=== PATIENT | male | born 2000 | race Caucasian/White ===

== ENCOUNTER 2021-05-13 11:09 | Emergency (ER) | payer OTHER, MEDICAID, SELFPAY ==
[2021-05-13 11:50] VITALS: BP 100/50; PULSE 60; RESP 18; TEMP 36.7; O2SAT 98; BMI 45.7
--- NOTE | 2021-05-13 11:58 | ED.SKABFB ---
HPI - Skin/Abscess/Foreign Bdy General Chief complaint: Skin/Abscess/Foreign Body Stated complaint: FINGER LACERATION WORK RELATED Time Seen by Provider: 05/13/21 11:49 Source: patient Mode of arrival: ambulatory Limitations: no limitations History of Present Illness HPI narrative: 20 y/o male presenting for evaluation left index finger laceration sustained 1 week ago while at work. He went to [facility] at the time and had 3 sutures placed. Wound has been healing appropritely without bleeding or signs of infection. He presents today for evaluation of suture removal. MD complaint: laceration Onset (ago): week(s) (1) Tetanus up to date: yes Location: L hand Severity: mild Severity scale (1-10): 4 Pain Consistency: now resolved Relieving factors: none Exacerbating factors: none Context: none Associated symptoms: denies other symptoms Treatments prior to arrival: none Review of Systems Review of Systems: Constitutional: No Fever, No Chills Gastrointestinal: No Nausea, No Vomiting Musculoskeletal: No joint pain, No Myalgias Skin: + Skin Lesions, No rash Neuro: No Weakness, No Numbness Heme/Lymph: No Bruising PMFSH Social History Social History Advance Directives: No Advance Directives Information Provided: Yes Physical Exam Vital Signs: Vital Signs: Last Vital Signs Temp 98.0 F 05/13/21 11:50 Pulse 60 05/13/21 11:50 Resp 18 05/13/21 11:50 BP 100/50 L 05/13/21 11:50 Pulse Ox 98 05/13/21 11:50 Body Mass Index 45.7 Appearance: Alert. Oriented X3. No acute distress. HEENT: normal inspection CVS: Normal heart rate and rhythm. Pulses normal. Respiratory: No respiratory distress. Skin: Skin warm and dry. Normal skin color. Normal skin turgor. No rashes. Extremities: left hand with normal inspection, palmar aspect of the left index finger with [address] on a simple linear laceration below the PIP, normal ROM, NV intact distally. Neuro: Oriented X 3. No motor deficit. No sensory deficit. Course Course Course Narrative: 20 y/o male presenting for suture removal which were placed 1 week ago. wound healed appropriately. 3 sutures removed and local wound care applied. stable for d/c home. Discharge Plan Discharge Clinical Impression: Laceration of finger of left hand Qualifiers: Encounter type: initial encounter Finger: index finger Damage to nail status: without damage Foreign body presence: without foreign body Qualified Code(s): S61.211A - Laceration without foreign body of left index finger without damage to nail, initial encounter Patient Disposition: Home, Self-Care Instructions: Stitches Removal (ED) Additional Instructions: Your wound healed nicely. You may wash with soap and water. Recommend triple antibiotic ointment to help with healing and scarring. Keep covered with a band aid while at work. If you develop new or worsening symptoms call 911 or come back to the ER for further evaluation. Stand Alone Forms: Work/School Release
== END 2021-05-13 12:17 | disposition home or self-care (01) ==
PROVIDERS: Emergency Provider Emergency Medicine
DX: S61.211A Laceration without foreign body of left index finger without damage to nail, initial encounter (principal); M79.642 Pain in left hand; W45.8XXA Other foreign body or object entering through skin, initial encounter; Y93.9 Activity, unspecified; Y92.9 Unspecified place or not applicable; Y99.0 Civilian activity done for income or pay
CPT/HCPCS: 99283

== ENCOUNTER 2024-10-01 06:09 | Emergency (ER) | payer OTHER, SELFPAY ==
--- NOTE | ~2024-10-01 | US_ITS ---
EXAMINATION: US ABDOMEN LIMITED CLINICAL INFORMATION: Right upper quadrant/epigastric pain, nausea and vomiting. COMPARISON: None available. TECHNIQUE: Real-time imaging of the right upper quadrant abdominal viscera. FINDINGS: PANCREAS: The pancreas is completely obscured by gas. LIVER: The liver is normal in size. The liver contour is normal. Parenchymal echogenicity is increased . No focal hepatic lesion. There is no intrahepatic biliary duct dilatation seen. GALLBLADDER: The gallbladder is physiologically distended without evidence of stones, sludge, polyps, wall thickening or pericholecystic fluid. There is no tenderness in right upper quadrant by ultrasound probe. Patient does have pain in the epigastric region COMMON BILE DUCT: Normal in caliber measuring 0.5 cm in diameter. RIGHT KIDNEY: No hydronephrosis. No renal calculi or focal parenchymal lesions. The kidney measures 9.5 cm in maximum dimension. FREE FLUID: None. US/US abdomen limited IMPRESSION: Mildly increased liver echogenicity but no focal lesion seen. Gallbladder, CBD, right kidney is unremarkable. Electronically signed by: Axel Cardenas MD 10/01/2024 12:15 PM EST
--- NOTE | ~2024-10-01 | XR_ITS ---
EXAMINATION: XR CHEST CLINICAL INFORMATION: sob COMPARISON: None available. TECHNIQUE: 2 views of the chest were obtained. FINDINGS: Poor inspiration. Prominence of the interstitial markings in the perihilar regions and peripherally. No pleural effusion. No pneumothorax. Cardiomediastinal silhouette size is normal. Osseous structures are intact. Patient's large body habitus. XR/XR chest 2V IMPRESSION: Concerning acute small airway inflammatory versus infectious process. Electronically signed by: Luke Frazier MD 10/01/2024 10:14 AM MIKIE NEGRO
[2024-10-01 06:13] VITALS: BP 157/80; PULSE 61; RESP 17; TEMP 36.6; O2SAT 100; BMI 39.1
[2024-10-01 06:28] LABS: MANUAL DIFF FLAG NO
[2024-10-01 06:32] LABS: Basophils Percent Auto 0.8 % (0-2); Eosinophils Absolute Auto 0.2 X10*3/uL (0.0-0.4); Eosinophils Percent Auto 3.6 % (0-4); Hemoglobin 14.9 g/dl (14.0-18.0); Imm Gran Abs Auto 0.05 X10*3/uL (0.00-0.03); Imm Gran Pct Auto 1.1 % (0.0-0.4); Lymphocytes Absolute Auto 1.5 X10*3/uL (1.2-4.9); Lymphocytes Percent Auto 30.9 % (20-40); Mean Corpuscular HGB Conc 34.7 g/dl (31.0-36.0); Mean Corpuscular Hemoglobin 27.6 pg (27.0-33.0); Mean Corpuscular Volume 79.6 fL (80.0-98.0); Mean Platelet Volume 9.3 fL (9.4-12.4); Monocytes Absolute Auto 0.8 X10*3/uL (0.1-1.2); Monocytes Percent Auto 16.1 % (2-11); Neutrophils Absolute Auto 2.2 x10*3/uL (2.0-8.3); Neutrophils Percent Auto 47.5 % (45-73); Platelet Count 249 X10*3/uL (160-400); Red Cell Distribution Width 13.2 % (11.0-16.0); White Blood Count 4.7 X10*3/uL (4.8-10.8)
[2024-10-01 06:49] LABS: Albumin Level 4.8 g/dL (3.5-5.0); Alkaline Phosphatase 50 U/L (39-117); Anion Gap 11 (12-20); Aspartate Amino Transferase 27 U/L (5-37); Bilirubin Direct 0.1 mg/dL (0.0-0.5); Bilirubin Total 0.4 mg/dL (0.0-1.0); Blood Urea Nitrogen 14 mg/dL (9-16); Calcium 9.8 mg/dL (8.4-10.2); Carbon Dioxide 26 mmol/L (22-29); Chloride 107 mmol/L (96-108); Creatinine Clr Calc Pharmacy 159.4; Estimated Glomerular Filt Rate > 60; Glucose Random 91 mg/dL (60-115); Lipase 43 U/L (8-78); Potassium 4.2 mmol/L (3.3-5.1); Sodium 140 mmol/L (135-145); Total Protein 8.6 g/dL (6.5-8.0)
[2024-10-01 07:02] LABS: Alanine Aminotransferase 32 U/L (0-40)
--- NOTE | 2024-10-01 10:01 | ED_ITS ---
HPI - Abdominal Pain General Chief Complaint: Abdominal Pain Stated Complaint: abd pain Time Seen by Provider: 10/01/24 09:39 Source: patient, RN notes reviewed and old records reviewed Mode of arrival: ambulatory History of Present Illness ED Provider: Jannet Delaney PA-C HPI narrative: 24-year-old male with no significant past medical history presents to the ED c/o epigastric abdominal pain, nausea, nonbloody vomiting & diarrhea, and SOB x2 days, also reports nonproductive cough x2 months. Denies chest pain, recent travel, dysuria/hematuria +sick contact. Related Data Previous Rx's ?Medication ?Instructions ?Recorded aluminum-mag hydroxide-simethicone 5 ml PO 5XD PRN dyspepsia #30 mL 10/01/24 200 mg-200 mg-20 mg/5 mL oral susp (Maalox Advanced) benzonatate 100 mg capsule 100 mg PO TID PRN cough #14 caps 10/01/24 famotidine 20 mg tablet (Pepcid) 20 mg PO DAILY #14 tabs 10/01/24 prednisone 20 mg tablet 40 mg (2 x 20 mg) PO DAILY 5 days 10/01/24 #10 tabs Allergies Allergy/AdvReac Type Severity Reaction Status Date / Time No Known Allergies Allergy Verified 10/01/24 06:14 Review of Systems Review of Systems Yes all other systems are reviewed and are negative Constitutional: Reports as per HPI [facility] Past Medical History Attestation statement: The following information was validated with the patient. Source: old records reviewed Physical Exam ED Vital Signs: Vital Signs - 24 hr 10/01/24 06:13 10/01/24 13:14 Temperature 97.9 F 97.9 F Pulse Rate 61 61 Respiratory Rate 17 17 Blood Pressure 157/80 H 157/80 H Pulse Oximetry 100 100 Oxygen Delivery Method Room Air Room Air BMI result Body Mass Index 39.1 Const General: cooperative, healthy appearing and no acute distress Orientation/consciousness: patient oriented x3 Limitations: no limitations HENMT Head: Yes normal to inspection and Yes atraumatic Ears: hearing grossly normal bilaterally General nose exam: Normal external nose present Face and sinus: Yes normal facial exam Eyes General: appearance normal, both eyes and all related structures EOM: EOMs intact bilaterally Neck Neck: Yes normal visual inspection and Yes no meningeal signs Resp Effort & Inspection: normal respiratory effort and no respiratory distress Auscultation: clear to auscultation bilaterally, no crackles, no rhonchi and no wheezes Cardio Rate: regular rate Heart sounds: S1 normal heart sound present and S2 normal heart sound present GI Inspection: Yes normal to inspection Palpation (GI): Soft to palpation, Tenderness to palpation present (GI) in the epigastrum and in the RUQ; with no rebound tenderness, no guarding and not rigid General: Yes no CVA tenderness Back/Spine/Pelvis Back: no CVA tenderness Skin Rashes: no rashes Wounds: no wounds Neuro General: patient oriented x3, tone normal and no meningeal signs Cranial nerves: Yes CN's II-XII intact bilaterally Gait exam (Neuro): Normal gait present Extrem General: Yes normal to inspection Course Course Course Narrative: -1050--labs reassuring XR chest 2V IMPRESSION: Concerning acute small airway inflammatory versus infectious process. -1303--COVID/flu/RSV negative US abdomen limited IMPRESSION: Mildly increased liver echogenicity but no focal lesion seen. Gallbladder, CBD, right kidney is unremarkable. > patient is tolerating p.o. in the ED without difficulty -rapid strep negative Results discussed with patient including worrisome signs and symptoms and strict return precautions, and when to return to the emergency department. They verbalized understanding and feel safe for discharge at this time. Medical Decision Making Medical Decision Making MDM Narrative: 24-year-old male with no significant past medical history presents to the ED c/o epigastric abdominal pain, nausea, nonbloody vomiting & diarrhea, and SOB x2 days, also reports nonproductive cough x2 months. On exam vital signs stable, NAD, nontoxic appearing, lungs CTA, abdomen with epigastric/RUQ tenderness, no rebound or guarding. Concern for viral illness vs pneumonia vs bronchitis vs pancreatitis/cholecystitis/lithiasis vs gastritis. Low suspicion for acute appendicitis/diverticulitis or ACS/PE Plan: Labs, CXR, viral testing, ultrasound, GI cocktail, p.o. trial, re- evaluate Please refer to course for remaining clinical decision making, interpretation of labs/imaging results, and discussions with consultants and/or family members. Differential Diagnosis Differential Diagnoses: The differential diagnosis associated with the presentation includes As above Admission/Observation Consideration of admission/observation: Escalation of care including admission/observation considered Lab Data MDM Lab Attestation statement: I reviewed the patient's lab results. 10/01/24 06:19 10/01/24 06:19 Labs: Lab Results 10/01/24 10/01/24 Range/Units 06:19 12:16 WBC 4.7 L (4.8-10.8) X10*3/uL RBC 5.40 (4.60-5.80) X10*6/uL Hgb 14.9 (14.0-18.0) g/dl Hct 43.0 (42.0-52.0) % MCV 79.6 L (80.0-98.0) fL MCH 27.6 (27.0-33.0) pg MCHC 34.7 (31.0-36.0) g/dl RDW 13.2 (11.0-16.0) % Plt Count 249 (160-400) X10*3/uL MPV 9.3 L (9.4-12.4) fL Immature Gran % (Auto) 1.1 H (0.0-0.4) % Neut % (Auto) 47.5 (45-73) % Lymph % (Auto) 30.9 (20-40) % [place] % (Auto) 16.1 H (2-11) % Eos % (Auto) 3.6 (0-4) % Baso % (Auto) 0.8 (0-2) % Lymph # (Auto) 1.5 (1.2-4.9) X10*3/uL [place] # (Auto) 0.8 (0.1-1.2) X10*3/uL Eos # (Auto) 0.2 (0.0-0.4) X10*3/uL Baso # (Auto) 0.0 (0.0-0.2) X10*3/uL Abs Immat Gran (auto) 0.05 H (0.00-0.03) X10*3/uL Absolute Neuts (auto) 2.2 (2.0-8.3) x10*3/uL Absolute Nucleated RBC 0.000 (0.0-0.012) X10*3/uL Nucleated RBC % (auto) 0.0 (0.0-0.2) /100WBC Sodium 140 (135-145) mmol/L Potassium 4.2 (3.3-5.1) mmol/L Chloride 107 (96-108) mmol/L Carbon Dioxide 26 (22-29) mmol/L Anion Gap 11 L (12-20) BUN 14 (9-16) mg/dL Creatinine 0.79 (0.5-1.4) mg/dL Estim Creat Clear Calc 159.4 Estimated GFR > 60 Random Glucose 91 (60-115) mg/dL Calcium 9.8 (8.4-10.2) mg/dL Magnesium 2.1 (1.6-2.6) mg/dL Total Bilirubin 0.4 (0.0-1.0) mg/dL Direct Bilirubin 0.1 (0.0-0.5) mg/dL AST 27 (5-37) U/L ALT 32 (0-40) U/L Alkaline Phosphatase 50 (39-117) U/L Total Protein 8.6 H (6.5-8.0) g/dL Albumin 4.8 (3.5-5.0) g/dL Lipase 43 (8-78) U/L Influenza Type A (PCR) NEGATIVE (Negative) Influenza Type B (PCR) NEGATIVE (Negative) RSV RNA Qual (PCR) NEGATIVE (Negative) SARS-CoV-2 RNA (RT-PCR) NEGATIVE (Negative) S. pyogenes GrpA ADAM Negative (Negative) Independent Interpretation I performed an independent interpretation of an: Plain X-Ray and Ultrasound Radiology Impression Discussion of test interpretation with radiology: I have reviewed the radiologist's reading. External Record Review External record reviewed: Inpatient record, Office record, Outpatient record, Prior outpatient labs, Prior outpatient radiology, Primary care record and Outside ED record Tests considered The following testing was considered but not selected: As above Prescription Management I considered prescription management with: Pain Medication and Antibiotic Chronic Conditions Patient?s care impacted by: Other Social Determinants Patient?s care significantly limited by Social Determinants of Health including: Other Social Determinant of Health Medications Administered Discontinued Medications Generic Name Dose Route Start Last Admin Trade Name Freq PRN Reason Stop Dose Admin Al Hydroxide/Mg Hydroxide 30 ml 10/01/24 10:18 10/01/24 11:30 Magnesium Hydrox/Alum Hydrox 30 Ml Oral.Susp PO 10/01/24 10:19 30 ml ONCE ONE Administration Famotidine 20 mg 10/01/24 10:18 10/01/24 11:30 Famotidine 20 Mg Tablet PO 10/01/24 10:19 20 mg ONCE ONE Administration Ondansetron HCl 4 mg 10/01/24 10:18 10/01/24 11:30 Ondansetron Odt 4 Mg Tab.Alena REVELESU 10/01/24 10:19 4 mg ONCE ONE Administration Discharge Plan Discharge Clinical Impression: Acute viral syndrome, Epigastric abdominal pain, Bronchitis Patient Disposition: Home, Self-Care Instructions: Viral Syndrome (ED), Epigastric Pain (ED) Additional Instructions: Your x-ray shows evidence of a virus/inflammation. No pneumonia You tested negative for COVID, flu, RSV Your ultrasound shows mild increased liver echogenicity Prednisone will help with cough/bronchitis. Tessalon Perles for cough, take as needed Pepcid and Maalox will help with acid reduction Please have close follow up with her doctor If symptoms persist or worsen or your unable to eat or drink return to the ED Prescriptions: New benzonatate 100 mg capsule 100 mg PO TID PRN (Reason: cough) Qty: 14 0RF famotidine [Pepcid] 20 mg tablet 20 mg PO DAILY Qty: 14 0RF alum-mag hydroxide-simeth [Maalox Advanced] 200-200-20 mg/5 mL suspension 5 ml PO 5XD PRN (Reason: dyspepsia) Qty: 30 0RF Rx Instructions: administer between meals and at bedtime prednisone 20 mg tablet 40 mg PO DAILY 5 Days Qty: 10 0RF Referrals: Physician,None [Primary Care Provider] - 5 days Interventions: ED Discharge Assessment Last Done: 10/01/24 13:14 Discharge Date/Time: 10/01/24 13:15 Print Language: Turkish
[2024-10-01 10:34] LABS: Magnesium 2.1 mg/dL (1.6-2.6)
[2024-10-01] MEDS: Famotidine 20 MG TABLET PO (11:30)
[2024-10-01] MEDS: Ondansetron ODT 4 MG TAB.RAPDIS TRANSLINGU (11:30)
[2024-10-01] MEDS: Magnesium Hydrox/Alum Hydrox 30 ML ORAL.SUSP PO (11:30)
[2024-10-01 13:01] LABS: Influenza A PCR NEGATIVE (Negative); Influenza B PCR NEGATIVE (Negative); Resp Syncy Virus RNA Qual PCR NEGATIVE (Negative); SARS COV2 PCR INHOUSE NEGATIVE (Negative)
[2024-10-01 13:14] VITALS: BP 157/80; PULSE 61; RESP 17; TEMP 36.6; O2SAT 100
[2024-10-01 13:24] LABS: IDNOW Serial# 58CA691E; Strep A Nucleic Acid Negative (Negative)
== END 2024-10-01 13:15 | disposition home or self-care (01) ==
PROVIDERS: Physician Assistant; Emergency Provider Emergency Medicine
DX: B34.9 Viral infection, unspecified (principal); J40 Bronchitis, not specified as acute or chronic; R10.811 Right upper quadrant abdominal tenderness; R10.13 Epigastric pain; R11.2 Nausea with vomiting, unspecified; R06.02 Shortness of breath; R05.9 Cough, unspecified; Z03.818 Encounter for observation for suspected exposure to other biological agents ruled out
CPT/HCPCS: 0241U; 36415; 71046; 76705; 80048; 80076; 83690; 83735; 85025; 87651; 99282; 99284

== ENCOUNTER → 2024-10-01 09:57 | Outpatient (BNV) | payer OTHER, SELFPAY | PROVIDERS: Emergency Provider Emergency Medicine; Visit Provider Radiology Diagnostic Radiology | DX: R10.11 Right upper quadrant pain (principal); R06.02 Shortness of breath | CPT/HCPCS: 71046; 76705 ==

== ENCOUNTER 2025-01-07 06:17 | Emergency (ER) | payer OTHER, SELFPAY ==
--- NOTE | ~2025-01-07 | XR_ITS ---
EXAMINATION: XR WRIST, RIGHT CLINICAL INFORMATION: fall, pain COMPARISON: None available. TECHNIQUE: PA, lateral, and oblique views of the right wrist. FINDINGS: The carpal bones are intact with normal alignment. Distal radius and ulna are intact. Acute comminuted cortical disruption at the base of the fifth metacarpal likely extending into the carpometacarpal joint. Soft tissue contusion ulnar aspect of the right hand. No metallic or radiopaque foreign body. No subcutaneous emphysema. XR/XR wrist RT min 3V IMPRESSION: Acute comminuted likely intra-articular fracture, base fifth metacarpal. Electronically signed by: Luke Frazier MD 01/07/2025 07:47 AM EDT
--- NOTE | ~2025-01-07 | XR_ITS ---
EXAMINATION: XR HAND, RIGHT CLINICAL INFORMATION: fall, pain COMPARISON: None available. TECHNIQUE: PA, lateral, and oblique views of the right hand. FINDINGS: Comminuted cortical disruption at the base of the fifth metacarpal and likely extending to the carpometacarpal joint. The metacarpals from the first of the fourth are intact. The phalanges are intact with normal alignment. No metallic or radiopaque foreign body. No subcutaneous emphysema. Distal radius and ulna are intact. XR/XR hand RT min 3V IMPRESSION: Acute comminuted likely intra-articular fracture, base of fifth metacarpal. Electronically signed by: Luke Frazier MD 01/07/2025 07:46 AM EDT
[2025-01-07 06:19] VITALS: BP 116/89; PULSE 62; RESP 16; TEMP 36.1; O2SAT 100; BMI 40.4
--- NOTE | 2025-01-07 07:27 | PC.NURSE ---
patient a&ox3, vss, pt stating he has 5/10 hand pain at rest, 10/10 pain with movement, did not take any otc medications for pain at home, + csm/pulses, awaiting radiology
--- NOTE | 2025-01-07 08:04 | ED_ITS ---
HPI - General Adult General Chief complaint: Extremity Problem Stated complaint: Fall, hand inj Time Seen by Provider: 01/07/25 08:02 Source: patient Mode of arrival: ambulatory Limitations: no limitations History of Present Illness ED Provider: Shruthi Marvin PA-C HPI narrative: Patient is a 24 year old assigned male at with no reported medical history presenting to the emergency department today with right hand pain along the side of the 5th finger. Patient states that at 0430 this morning he fell and caught himself on his closed fist and has pain of the right hand ever since. Patient denies any head strike, loss of consciousness, dizziness, lightheadedness, abdominal pain, nausea, vomiting, fever, chills, blurry vision, double vision, loss of vision, chest pain, difficulty breathing, shortness of breath, back pain, night sweats, pain with urination, increased urinary frequency, increased urinary urgency, blood in his urine or stool, syncope or a near syncopal episode, bowel incontinence, bladder incontinence, or any other complaints at this time. Onset (ago): hour(s) Location: right and upper extremity Relieving factors: immobilization Exacerbating factors: movement Associated symptoms: denies other symptoms Treatments prior to arrival: none Related Data Previous Rx's ?Medication ?Instructions ?Recorded aluminum-mag hydroxide-simethicone 5 ml PO 5XD PRN dyspepsia #30 mL 10/01/24 200 mg-200 mg-20 mg/5 mL oral susp (Maalox Advanced) benzonatate 100 mg capsule 100 mg PO TID PRN cough #14 caps 10/01/24 famotidine 20 mg tablet (Pepcid) 20 mg PO DAILY #14 tabs 10/01/24 prednisone 20 mg tablet 40 mg (2 x 20 mg) PO DAILY 5 days 10/01/24 #10 tabs Allergies Allergy/AdvReac Type Severity Reaction Status Date / Time No Known Allergies Allergy Verified 01/07/25 06:20 Review of Systems Constitutional: Constitutional: Reports no additional constitutional complaints, Denies chills, Denies fever(s) and Denies night sweats Eyes: Eyes: Reports no additional eye complaints, Denies blurry vision, Denies change in vision, Denies diplopia, Denies eye discharge, Denies loss of vision and Denies eye pain ENT: Denies dizziness Cardiovascular: Cardiovascular: Reports no additional cardiovascular complaints, Denies chest pain, Denies lightheadedness, Denies Loss of Consciou sness and Denies dyspnea Respiratory: Respiratory: Reports no additional respiratory complaints and Denies dyspnea Gastrointestinal: Gastrointestinal: Reports no additional gastrointestinal complaints, Denies abdominal pain, Denies melena, Denies hematochezia, Denies change in bowel habits and Denies change in stool character Genitourinary: Genitourinary: Reports no additional male genitourinary complaints, Denies hematuria, Denies oliguria, Denies difficulty urinating, Denies dysuria, Denies urinary frequency, Denies urinary hesitancy, Denies urinary incontinence and Denies urinary urgency Musculoskeletal: Musculoskeletal: Reports no additional musculoskeletal complaints, Denies numbness and Denies tingling Comments: right hand pain Neurologic: Denies dizziness, Denies loss of vision, Denies numbness and Denies tingling Psychiatric: Psychiatric: Reports no additional psychiatric complaints Endocrine: Endocrine: Reports no additional endocrine complaints Hematologic/Lymphatic: Hematologic/Lymphatic: Reports no additional hematologic/lymphatic complaints Allergic/Immunologic: Allergic/Immunologic: Reports no additional allergic/immunologic complaints PMFSH Past Medical History Attestation statement: The following information was validated with the patient. Source: old records reviewed and nursing notes reviewed Physical Exam ED Vital Signs: Vital Signs - 24 hr 01/07/25 06:19 01/07/25 09:16 Temperature 97 F 97.3 F Pulse Rate 62 68 Respiratory Rate 16 16 Blood Pressure 116/89 118/78 Pulse Oximetry 100 99 Oxygen Delivery Method Room Air Room Air BMI result Body Mass Index 40.4 Const General: cooperative, no acute distress, alert and awake Nutritional Appearance: well nourished Orientation/consciousness: patient oriented x3 HENMT Head: Yes normal to inspection and Yes atraumatic Ears: hearing grossly normal bilaterally and external ears normal General nose exam: Normal external nose present, no nasal discharge noted and no epistaxis Face and sinus: Yes normal facial exam, No abrasion and No laceration Mouth: Normal oral and palatal mucosa present, no drooling and no muffled voice Eyes General: appearance normal, both eyes and all related structures Periorbital: periorbital findings normal Eyelids: Yes eyelids normal Conjunctivae: conjunctivae normal Pupils: Equal, round and reactive pupils present EOM: EOMs intact bilaterally Neck Neck: Yes normal visual inspection, Yes full ROM and Yes no lymphadenopathy Resp Effort & Inspection: normal respiratory effort and able to speak in complete sentences Neuro General: patient oriented x3, moves all extremities and CN's II-XI intact bilaterally Cranial nerves: Yes Equal, round and reactive pupils present Cognition (Neuro): normal cognition Extrem Other: limited ROM of the right 5th finger secondary to pain minimal swelling present to the dorsal aspect of the right 5th metacarpal General: Yes capillary refill normal Psych Appearance: grossly normal Mental Status: mental status grossly normal Affect: normal affect Attitude: cooperative Thought process: Normal thought process present Thought content: Normal thought content present Insight: Good insight present (Psych) Procedures Orthopedic Splinting/Casting Injury #1: Side: right Upper Extremity Injury Location: hand Upper Extremity Immobilizer: sling/shoulder immobilizer and ulnar gutter Medical Decision Making Medical Decision Making MDM Narrative: Patient is a 24 year old assigned male at with no reported medical history presenting to the emergency department today with right hand pain along the side of the 5th finger. Patient's physical exam was as noted in the physical exam portion of this note. Patient's right hand and wrist x-rays showed an acute comminuted likely intra-articular fracture of the base of the 5th right metacarpal. I explained my physical exam findings as well as all test results to the patient. I answered all questions asked by the patient. Right's right hand / wrist was placed in an ulnar gutter splint, without incident. Patient's PMS of the RUE was intact prior to and after splint placement. Patient was placed in a sling to make ambulating more comfortable given the weight of the splint. Patient's PMS was intact prior to and after sling placement. I stressed the importance of the patient taking his medication as directed (either prescribed or as the over the counter packaging recommends). I stressed the importance of the patient following up with his primary care provider and the orthopedic team. I stressed the importance of the patient returning to the emergency department immediately if his symptoms were to worsen or if he were to develop any dizziness, shortness of breath, difficulty breathing, chest pain, blurry vision, loss of vision, nausea, vomiting, abdominal pain, fever, chills, back pain, or any other complaints. Patient verbalized agreement and understanding with this treatment plan and discharge. Differential Diagnosis Differential Diagnoses: The differential diagnosis associated with the presentation includes R 5th metacarpal fracture R hand fracture Admission/Observation Consideration of admission/observation: Escalation of care including admission/observation considered Patient would have been admitted to the hospital had his work up had any findings where hospital admission was appropriate and his clinical presentation warranted hospital admission. Independent Interpretation I performed an independent interpretation of an: Plain X-Ray Interpretation: My interpretation is in agreement with the radiologist's impression of these imaging studies. EXAMINATION: XR WRIST, RIGHT CLINICAL INFORMATION: fall, pain COMPARISON: None available. TECHNIQUE: PA, lateral, and oblique views of the right wrist. FINDINGS: The carpal bones are intact with normal alignment. Distal radius and ulna are intact. Acute comminuted cortical disruption at the base of the fifth metacarpal likely extending into the carpometacarpal joint. Soft tissue contusion ulnar aspect of the right hand. No metallic or radiopaque foreign body. No subcutaneous emphysema. XR/XR wrist RT min 3V IMPRESSION: Acute comminuted likely intra-articular fracture, base fifth metacarpal. Electronically signed by: Luke Frazier MD 01/07/2025 07:47 AM EDT Dictated By: Luke Wright MD Signed By: Electronically signed by Luke Iqbal MD 01/07/25 0747 EXAMINATION: XR HAND, RIGHT CLINICAL INFORMATION: fall, pain COMPARISON: None available. TECHNIQUE: PA, lateral, and oblique views of the right hand. FINDINGS: Comminuted cortical disruption at the base of the fifth metacarpal and likely extending to the carpometacarpal joint. The metacarpals from the first of the fourth are intact. The phalanges are intact with normal alignment. No metallic or radiopaque foreign body. No subcutaneous emphysema. Distal radius and ulna are intact. XR/XR hand RT min 3V IMPRESSION: Acute comminuted likely intra-articular fracture, base of fifth metacarpal. Electronically signed by: Luke Frazier MD 01/07/2025 07:46 AM EDT RP Dictated By: Luke Wright MD Signed By: Electronically signed by Luke Iqbal MD 01/07/25 8037 Radiology Impression Discussion of test interpretation with radiology: I have reviewed the radiologist's reading. Discharge Plan Discharge Clinical Impression: Fracture, metacarpal, Fracture of hand Patient Disposition: Home, Self-Care Instructions: Hand Fracture (DC) Additional Instructions: Only use your sling when ambulating if the weight of the splint is too much to comfortably carry. Every 1 hour for 10 minutes while wearing the sling, remove it and move your right elbow and shoulder joints. Do NOT get your splint wet. Do NOT remove your splint. If you have any change in sensation, movement, or color of your right fingers - you may loosen the outer JOE wraps. If you find yourself loosening the JOE wraps to the point of seeing the white splint material underneath - STOP and proceed to your closest Emergency Department, immediately. Follow up with your primary care provider and the orthopedic team. Return to the emergency department immediately if your symptoms worsen or if you develop any numbness, tingling, dizziness, shortness of breath, difficulty breathing, chest pain, blurry vision, loss of vision, nausea, vomiting, abdominal pain, fever, chills, back pain, or any other complaints. Utilice el cabestrillo s?lo cuando deambule si el peso de la f?patricia es demasiado para llevarlo c?modamente. Cada 1 hora linden 10 minutos mientras lleve el cabestrillo, qu?teselo y mueva las articulaciones del codo y hombro derechos. NO moje la f?patricia. NO se quite la f?patricia. Si tiene alg?n cambio en la sensibilidad, el movimiento o el color de los dedos derechos, puede aflojar las envolturas externas de la f?patricia JOE. Si se encuentra aflojando las vendas JOE hasta el punto de tory el material pace de la f?patricia por debajo, DET?NGASE y dir?claudia inmediatamente al servicio de urgencias m?s cercano. Dwait un seguimiento con vincent m?dico de cabecera y el equipo ortop?dico. Vuelva al servicio de urgencias inmediatamente si lucero s?ntomas empeoran o si presenta entumecimiento, hormigueo, mareos, falta de aliento, dificultad para respirar, dolor tor?cico, visi?n borrosa, p?rdida de visi?n, n?useas, v?mitos, dolor abdominal, fiebre, escalofr?os, dolor de espalda o cualquier otra molestia. Please see the information below about our Patient Portal. If you are not yet enrolled in the [facility] Patient Portal, you will receive an enrollment email invitation following your visit to any [facility] [place] [place] [place] care setting. You may also self-enroll in the Patient Portal by visiting our website: [email or web address] The following information is required to access the Patient Portal: - Your [facility] [place] [place] - Your personal home email address (must match what is in your electronic medical record, Registration staff can assist with this) - Name - Date of Capabilities of the Patient Portal: - Message some providers - View upcoming appointments - Access your health summary, medical history, and visit history - View current conditions and allergies - View procedure and lab results - View your medications, including guidelines, side effects, and precautions - Complete pre-appointment questionnaires requested by your provider - Ready summary reports of your office visits and procedures To access the Patient Portal Mobile Bhumika, follow these directions: - Search [employer] in the Bhumika Store or [employer] - Download the Bhumika - Search for [facility] - Enter your login/password Portal del paciente Si usted no esta inscrito en el portal de pacientes de [facility], recibira sami invitacion de inscripcion despues de vincent visita al [facility] o al [facility] [place] [place] via correo electronico. Tambien puede inscribirse voluntariamente en el portal de pacientes visitando nuestra pagina web: [email or web address] La siguiente informacion sera requerida para acceder al portal: - Vincent tarik de historia medica de [facility] [place] - Vincent direccion de correo electronico personal - Nombre - Fecha de nacimiento Capacidades: Las siguientes capacidades estan disponibles en el portal de pacientes: - Enviar mensajes a algunos doctores - Verificar proximas citas - Acceso a vincent historial de brittany, registro medico e historial de visitas - Tory las condiciones actuales y alergias tory procedimientos y resultados del laboratorio - Tory lucero medicamentos, incluyendo las pautas - Efectos secundarios y precauciones - Completar o llenar formularios / cuestionarios de - Citas solicitadas por vincent doctor - Leer los resumenes de reportes medicos de lucero visitas y procedimientos Arabella acceder a la aplicacion movil: - Busque [employer] en la Bhumika Store o [employer] - Descargue la aplicacion - Busque [facility] - Ingrese vincent nombre de usuario / Contrasena Prescriptions: No Action benzonatate 100 mg capsule 100 mg PO TID PRN (Reason: cough) Qty: 14 0RF famotidine [Pepcid] 20 mg tablet 20 mg PO DAILY Qty: 14 0RF alum-mag hydroxide-simeth [Maalox Advanced] 200-200-20 mg/5 mL suspension 5 ml PO 5XD PRN (Reason: dyspepsia) Qty: 30 0RF Rx Instructions: administer between meals and at bedtime prednisone 20 mg tablet 40 mg PO DAILY 5 Days Qty: 10 0RF Referrals: [facility] [place] [place] [Provider Group] (Call to establish and follow up with a primary care provider. If you already have a primary care provider, please follow up with them.) [facility] [place] [facility], Jorge [Provider Group] (Call to establish and follow up with a primary care provider. If you already have a primary care provider, please follow up with them.) [facility] [place] [facility], Luh [Provider Group] (Call to establish and follow up with a primary care provider. If you already have a primary care provider, please follow up with them.) [facility] [place] [facility], Raven [Provider Group] (Call to establish and follow up with a primary care provider. If you already have a primary care provider, please follow up with them.) [facility] [place] [facility], Austin Hernandez [Provider Group] (Call to establish and follow up with a primary care provider. If you already have a primary care provider, please follow up with them.) [facility] [place] [Provider Group] (Call to establish and follow up with the orthopedic office. ) Stand Alone Forms: Work/School Release Interventions: ED Discharge Assessment Last Done: 01/07/25 09:16 Discharge Date/Time: 01/07/25 09:18 Print Language: Yi
--- NOTE | 2025-01-07 09:10 | PC.NURSE ---
splint and sling applied, pt tolerated well
[2025-01-07 09:16] VITALS: BP 118/78; PULSE 68; RESP 16; TEMP 36.3; O2SAT 99
== END 2025-01-07 09:18 | disposition home or self-care (01) ==
PROVIDERS: Emergency Provider Emergency Medicine
DX: S62.316A Displaced fracture of base of fifth metacarpal bone, right hand, initial encounter for closed fracture (principal); M79.641 Pain in right hand; X58.XXXA Exposure to other specified factors, initial encounter; Y93.9 Activity, unspecified; Y92.9 Unspecified place or not applicable; Y99.8 Other external cause status
CPT/HCPCS: 29125; 73110; 73130; 99283

== ENCOUNTER → 2025-01-07 07:30 | Outpatient (BNV) | payer OTHER, SELFPAY | PROVIDERS: Visit Provider Radiology Diagnostic Radiology | DX: M25.531 Pain in right wrist (principal); M79.641 Pain in right hand; W19.XXXA Unspecified fall, initial encounter | CPT/HCPCS: 73110; 73130 ==

== ENCOUNTER 2025-01-07 11:12 | Outpatient (AMB) | payer OTHER, SELFPAY ==
--- NOTE | 2025-01-07 11:24 | MHC.OFFVIS ---
Vital Signs 01/07/25 11:25 Height 5 ft 5 in Weight 243 lb BMI 40.4 Intake Visit Reasons: FC intra-articular fx, base of 5th metacarpal Intake Note: Rosas 24 yr old right hand dominant male presents today for a fracture care visit s/p ED visit 01/07/25. Patient states that at 0430 this morning he fell and caught himself on his closed fist and has pain of the right hand ever since. Xray taken in ED where a fracture was confirmed, patient was splinted and referred to orthopedics. Currently states his pain is a 5/10 and worsen with he moves his arm/hand. Denies numbness or tingling in fingers. Allergies No Known Allergies Allergy (Verified 01/07/25 11:31) HPI HPI FC intra-articular fx, base of 5th metacarpal: Details: Rosas is a 24 year old right hand dominant man who presents for a right 5th metacarpal base fx, from a fall, DOI: 01/07/25. He was seen in the ED and placed in an ulnar gutter splint. He complains of pain in his hand, worse with any movement. He denies any numbness or tingling. He says he has asthma & a dry cough for the last 2 years. He is in the process of finding a new PCP. He works in shipping, primarily loading/unloading packages. [facility] Social History (Updated 01/07/25 @ 11:32 by EMILIO Lao) Current occupational status: employed Current occupation: shipping airplanes parts/ rt hand Review of Systems Const All systems reviewed & are unremarkable except as noted in HPI and below Physical Exam Vital Signs: BMI result Body Mass Index 40.4 Const General: cooperative, healthy appearing and no acute distress Orientation/consciousness: patient oriented x3 HEENT Head: Yes normocephalic and Yes atraumatic Eyes EOM: EOMs intact bilaterally Resp Effort & Inspection: normal respiratory effort and able to speak in complete sentences Cardio Jugular venous distension: no JVD Skin General skin exam: turgor normal Rashes: no rashes Neuro General: patient oriented x3 Extrem Other: Evaluation of Right Upper Extremity: The patient is alert, oriented, and in no acute distress Neuro: Sensation intact to the tips of all digits Vascular: Cap refill brisk ROM: He can bring his fingers closed to a weak fist Painless wrist ROM Skin: No lacerations or abrasions or evidence of open fracture General: No Erythema or evidence of infection. Mild swelling & ecchymosis developing Most tender over the 5th metacarpal base No tenderness along the length of the small finger No tenderness at the 5th MCP joint Radiographs: 3 views of the right hand were taken and viewed by me today in clinic. They show a 5th metacarpal base fracture, intra-articular, with ulnar translation of the joint on the PA view Psych Appearance: grossly normal Affect: normal affect Attitude: cooperative Assessment & Plan Assessment & Plan (1) Fracture of fifth metacarpal bone of right hand: Code(s): S62.306A - Unspecified fracture of fifth metacarpal bone, right hand, initial encounter for closed fracture Category: Medical (2) Closed dislocation of fifth carpometacarpal joint of right hand: Code(s): S63.054A - Dislocation of other carpometacarpal joint of right hand, initial encounter Category: Medical Plan Assessment & Plan: 1. Right 5th CMC joint fracture dislocation, intra-articular With ulnar displacement of the joint From a fall, DOI: 01/07/25 I educated him about this condition I discussed operative and non-operative treatment options The patient would like to proceed with surgery He was fitted for a new splint, to be worn until his DOS. He works in a warehouse loading/unloading packages. He was given a note to remain out of work for the next 2 weeks, effective 01/07/25. The risks and benefits of operative treatment were discussed with the patient and the patient wishes to proceed with surgery. These risks include, but are not limited to risk of damage to blood vessels, nerves, tendons, infection, recurrence, incomplete relief of preoperative symptoms, persistent pain, possible need for further surgery and the risks associated with regional blocks and anesthesia. The plan is to take the patient to the operating room sometime on 01/09/25 for the following procedures: 1. Right 5th metacarpal CRPP vs ORIF, under general All of the preoperative paperwork including the consent was reviewed today. All the patient's questions were answered. The patient understands that they will be contacted by our crusher machine operator soon to schedule this procedure He denies Diabetes, blood thinners, asthma, heart, lung, kidney issues Scribed for Rachel Payton MD by Zeke Wolf, medical office assistant, on 01/07/25 at 11:35 AM, EST. Coding Level of Care Code New Pt Level 4 (38115) Diagnoses Fracture of fifth metacarpal bone of right hand S62.306A Closed dislocation of fifth carpometacarpal joint of right hand S63.054A
[2025-01-07 11:25] VITALS: BMI 40.4
== END 2025-01-07 12:17 | disposition home or self-care (01) ==
LOC: HO.HOS 11:12
PROVIDERS: Visit Provider Orthopaedic Surgery
DX: S62.306A Unspecified fracture of fifth metacarpal bone, right hand, initial encounter for closed fracture (principal); S63.054A Dislocation of other carpometacarpal joint of right hand, initial encounter
CPT/HCPCS: 99204

== ENCOUNTER 2025-01-09 11:02 | Day surgery (SDC) | payer OTHER, SELFPAY ==
--- NOTE | 2025-01-08 10:20 | HO.ANESPROP2 ---
Documented by User: Milvia Bowser NP 01/08/25 10:21 HPI - Anesthesia Eval Consult details Narrative: 24yo M for 5th CRPP vs ORIF Metacarpal PMFSH Active Problems Active Problems: All Active Problems Closed dislocation of fifth carpometacarpal joint of right hand (Acute) Fracture of fifth metacarpal bone of right hand (Acute) Past Medical History Medical History Asthma Surgical History Surgical History Hx of tonsillectomy Social History Social History Are you a primary director of patient care to a significant other at home: No Do you presently have visiting nurse or other home services: No Patient Tobacco Use Status: Never used Tobacco Use of substances other than those prescribed or required for medical reasons: No Have you been hit, kicked, punched, or otherwise hurt by someone within the past year? If so, by whom?: No Are you DNR?: No Advance Directives: No Advance Directives Information Provided: Yes Poor oral hygiene: No Current occupational status: employed Current occupation: shipping airplanes parts/ rt hand Meds Allergies Allergy/AdvReac Type Severity Reaction Status Date / Time No Known Allergies Allergy Verified 01/09/25 11:14 Home Medications ?Medication ?Instructions ?Recorded ?Confirmed ?Last Taken ?Type No Known Home Meds 01/09/25 01/09/25 Unknown History Exam Pertinent Lab Results Pertinent Lab Results: Laboratory Tests 10/01/24 06:19 WBC 4.7 L Hgb 14.9 Hct 43.0 Plt Count 249 Sodium 140 Potassium 4.2 Chloride 107 Carbon Dioxide 26 BUN 14 Creatinine 0.79 Assessment and Plan Assessment Anesthesia Assessment: Chart Reviewed Documented by User: Caridad Levi MD 01/09/25 12:02 PMFSH Past Medical History Medical History Asthma Family History Family history of problems with anesthesia: No Surgical History Surgical History Hx of tonsillectomy History of Problems with Anesthesia: No Social History Social History Are you a primary director of patient care to a significant other at home: No Do you presently have visiting nurse or other home services: No Patient Tobacco Use Status: Never used Tobacco Use of substances other than those prescribed or required for medical reasons: No Have you been hit, kicked, punched, or otherwise hurt by someone within the past year? If so, by whom?: No Are you DNR?: No Advance Directives: No Advance Directives Information Provided: Yes Poor oral hygiene: No Current occupational status: employed Current occupation: [employer]/ rt hand Meds Allergies Allergy/AdvReac Type Severity Reaction Status Date / Time No Known Allergies Allergy Verified 01/09/25 11:14 Home Medications ?Medication ?Instructions ?Recorded ?Confirmed ?Last Taken ?Type No Known Home Meds 01/09/25 01/09/25 Unknown History Exam Airway Mallampati Class: III TM Dist: <=3cm Neck ROM: Full Heart: rrr Lungs: cta Assessment and Plan Assessment Anesthesia Assessment: Anesthesia Plan Discussed Final Anesthetic Review Family History of Problems with Anesthesia: No History of Problems with Anesthesia: No NPO: Yes ASA Class: II (obesity) Final Preanesthetic Review: No Changes in Pt Med Stat, Meds/Allgs Chart Reviewed, Consent Obtained/Reviewed and Anes Risks/Benef Reviewed Patient Risk: Intermediate Procedure Risk: Low Anesthetic Plan Anesthetic Plan: GA Disposition: Standard PACU
--- NOTE | ~2025-01-09 | FL_ITS ---
EXAMINATION: FL GUIDANCE ONLY HISTORY: 5th CRPP vs ORIF metacarpal-right COMPARISON: Correlation is made with plain films of the right hand dated 01/07/2025. TECHNIQUE: Fluoroscopy time: 64.64 seconds. Cumulative Dose: 1.8699 mGy. DAP: 0.1130 mGym2 Images: 7. FINDINGS: Images demonstrate internal fixation of the previously seen comminuted intra-articular fracture of the base of the 5th metacarpal with 2 K wires. FL/FL guidance in OR IMPRESSION: Fluoroscopy during procedure. Please see procedure report for additional information. Electronically signed by: Greg Spann MD 01/09/2025 03:08 PM EDT
[2025-01-09 11:15] VITALS: BMI 38.5
[2025-01-09] MEDS: Lactated Ringers 1,000 ML 100 ML IVCONT (11:40)
[2025-01-09 11:43] VITALS: BP 120/68; PULSE 60; RESP 15; TEMP 36.6; O2SAT 97
--- NOTE | 2025-01-09 13:42 | P.OP_ITS ---
Operative Note Operative Note Date of Service: 01/09/25 Narrative: Operative Note Narrative: Preop diagnosis: 1. Right 5th Metacarpal base fracture, dislocation Postop diagnosis: Same Procedure: 1. Left 5th Metacarpal base fracture/dislocation closed reduction percutaneous pinning 2. Ulnar nerve block Surgeon: Rachel Payton MD Inner Tube Tuber Machine Operator: Gurwinder PLASCENCIA Anesthesia: General Anesthesia Findings: Metacarpal fracture Implants: 0.062 K-wires times 2 Tourniquet time: None EBL: Minimal Specimen: None Drains: None Complications: None Disposition: Brought to the recovery room in stable condition Plan: Follow-up in 10-14 days for a wound check, postop radiographs and for placement in a short-arm cast allowing for MCP motion Anticipate K-wire removal in 4 weeks based on interval bony healing Educate the patient that full fracture healing anticipated in approximately 8-12 weeks. Indications: The patient is 24 years old with a right 5th metacarpal base fracture with dislocation of the articular surface ulnarly. . The risks and benefits of operative treatment, including but not limited to risk of damage to blood vessels, nerves, tendons, infection, recurrence, delayed or nonunion of fracture, persistent pain or numbness, incomplete resolution of preoperative symptoms, or need for further surgery were discussed with the patient and they wished to proceed with surgery. Procedure: Once consent was obtained patient was brought back to the operating suite and placed in the operating table in a supine position. . Perioperative antibiotics and general anesthesia was administered by the anesthesia team. A tourniquet was applied to the proximal aspect of the right upper extremity and the limb was prepped and draped in a standard surgical fashion. Tourniquet was not inflated during the case. The FluoroScan was used during the case to assist with our fracture reduction and placement of all implants. A closed reduction was performed on the patient's right 5th metacarpal shaft fracture. We were able to easily reduce t he joint. It was evident that a radially directed force on the 5th metacarpal head resulted in ulnar dislocation of the base of the 5th metacarpal. There was also an intra-articular split with the radial articular surface displaced proximally causing a step-off at the articular surface. I passed a 0.062 K-wire through the dorsal soft tissues down to the fracture. I then used the 6 2 K- wire to manipulate the fracture and bring down the radial articular piece. We were able to bring it down to almost its original anatomic position. Once satisfied with our closed reduction and manipulation of this fragment, I placed a 0.062 K-wire transversely across the base of the 5th metacarpal proximal to our fracture, advancing across the base of the 4th metacarpal and into the base of the 3rd metacarpal. I placed a 2nd 0.062 K-wire obliquely extending from the ulnar aspect of the proximal 5th metacarpal shaft extending into the base of the 4th metacarpal. Fracture alignment was assessed for both angular and rotational malalignment. Once satisfied with our fracture reduction and implant placement, the K-wires were bent and cut short and pin caps applied. Final fluoroscopic images were then obtained. An ulnar nerve block was then performed by infiltrating about the ulnar nerve at the wrist with some 1% lidocaine with epinephrine for postop pain control. A Sterile dressing and volar splint was applied. The patient appears to have tolerated the procedure well and with no complications. All digits were well vascularized at the conclusion of the case.
--- NOTE | 2025-01-09 13:42 | MHC.SHP ---
Pre-Procedural Eval Section A - 24 Hr Update-Section A only Date of Service: 01/09/25 The patient is an INPATIENT: No Changes since office visit: No Cold of Flu in the past 2 weeks, No New Medical Problems, No Changes in Medication and No Patient answered all questions The patient has been examined within 24 hours of the surgical procedure. The History & Physical has been completed within 30 days and I have reviewed it.: Yes Section B - Complete if H&P > 30 days Chief Complaint: Unspecified fracture of fifth metacarpal bone, Allergies: Allergies Allergy/AdvReac Type Severity Reaction Status Date / Time No Known Allergies Allergy Verified 01/09/25 11:14 Plan I have reviewed the history and physical and performed a pertinent physical examination on my patient. No changes have occurred unless specified. Time Spent With Patient Time: Total time managing care of this patient today ____ minutes.
[2025-01-09] MEDS: ceFAZolin Sodium/Dextrose,Iso 2 GM/50 ML PIGGYBACK IV (13:50)
[2025-01-09 14:55] VITALS: BP 129/65; PULSE 90; RESP 12; TEMP 36.1; O2SAT 100
[2025-01-09 15:00] VITALS: BP 148/63; PULSE 82; RESP 16; O2SAT 97
[2025-01-09 15:05] VITALS: BP 146/68; PULSE 77; RESP 16; O2SAT 99
[2025-01-09 15:10] VITALS: BP 131/78; PULSE 72; RESP 20; O2SAT 100
[2025-01-09 15:25] VITALS: BP 139/76; PULSE 70; RESP 20; TEMP 36.1; O2SAT 99
== END 2025-01-09 16:03 | disposition home or self-care (01) ==
PROVIDERS: Visit Provider Orthopaedic Surgery
PROC: (CPT 26608; principal; 2025-01-09 12:40)
DX: S62.316A Displaced fracture of base of fifth metacarpal bone, right hand, initial encounter for closed fracture (principal); S63.064A Dislocation of metacarpal (bone), proximal end of right hand, initial encounter; W01.0XXA Fall on same level from slipping, tripping and stumbling without subsequent striking against object, initial encounter; Y93.9 Activity, unspecified; Y92.9 Unspecified place or not applicable; Y99.9 Unspecified external cause status; J45.909 Unspecified asthma, uncomplicated
CPT/HCPCS: 26608; J0131; J0690; J1100; J1885; J2003; J2004; J2250; J2405; J2704; J2795; J3010

== ENCOUNTER → 2025-01-09 11:02 | Outpatient (BNV) | payer OTHER, SELFPAY | PROVIDERS: Visit Provider Orthopaedic Surgery | DX: S62.307A Unspecified fracture of fifth metacarpal bone, left hand, initial encounter for closed fracture (principal) | CPT/HCPCS: 26608 ==

== ENCOUNTER 2025-01-21 12:53 | Outpatient (REF) | payer OTHER, SELFPAY ==
--- NOTE | ~2025-01-21 | XR_ITS ---
EXAMINATION: XR HAND, RIGHT CLINICAL INFORMATION: M79.642 - Pain in left hand follow-up. COMPARISON: January 072024 TECHNIQUE: PA, lateral, and oblique views of the right hand. FINDINGS: There are 2 K wires fixating an intra-articular fracture through the base of the fifth metacarpal. There are new since the prior study. There is no lucency at the bone metal interface. Displacement of osteochondral fragments at the fracture site appears essentially stable compared to the preoperative x-ray. There is 3 mm ulnar minus variance. No other abnormalities are evident. XR/XR hand RT min 3V IMPRESSION: Intra-articular fracture involving the base of the right 5th metacarpal with interval placement of 2 K wires. Electronically signed by: Andre Arguello MD 01/21/2025 03:25 PM EDT
== END 2025-01-21 12:54 | disposition home or self-care (01) ==
LOC: HO.HOSX 12:53
DX: S63.054A Dislocation of other carpometacarpal joint of right hand, initial encounter (principal); S62.306A Unspecified fracture of fifth metacarpal bone, right hand, initial encounter for closed fracture
CPT/HCPCS: 29085; 73130

== ENCOUNTER 2025-01-21 12:53 | Outpatient (AMB) | payer OTHER, SELFPAY ==
--- NOTE | 2025-01-21 13:06 | MHC.OFFVIS ---
Vital Signs 01/21/25 13:09 Height 5 ft 5 in Weight 240 lb BMI 39.9 Handedness Right Intake Visit Reasons: PO: left 5th MC fx CRPP 01/09/25 Intake Note: Rosas is a 24 year old right hand dominant male who presents today for a post operative visit status post left 5th metacarpal base fracture/dislocation CRPP DOS: 01/09/[address] Rachel Payton. Patient reports it feels weird when he attempts to move his fingers. Denies any pain. Report intermittent numbness and tingling on the dorsal aspect of the 4th and 5th left digits. Allergies No Known Allergies Allergy (Verified 01/21/25 13:11) HPI HPI PO: left 5th MC fx CRPP 01/09/25 : Details: Rosas is a 24 year old right hand dominant male who presents today for a post operative visit status post left 5th metacarpal base fracture/dislocation CRPP DOS: 01/09/[address] Rachel Payton. Patient reports it feels weird when he attempts to move his fingers. Denies any pain. Report intermittent numbness and tingling on the dorsal aspect of the 4th and 5th left digits. [facility] Medical History (Updated 01/21/25 @ 13:13 by EMILIO Ramsey) Closed dislocation of fifth carpometacarpal joint of right hand (~01/07/25) Fracture of fifth metacarpal bone of right hand (~01/07/25) Asthma Surgical History Hx of tonsillectomy Social History Are you a primary rehab care assistant to a significant other at home: No Do you presently have visiting nurse or other home services: No Comment: counts correct Patient Tobacco Use Status: Never used Tobacco Current occupational status: employed Current occupation: shipping airplanes parts/ rt hand Review of Systems Const All systems reviewed & are unremarkable except as noted in HPI and below Physical Exam Vital Signs: BMI result Body Mass Index 39.9 Extrem Other: Patient is alert, oriented, and in no acute distress. Neuro: Normal sensation of the tips of all digits of the right hand at this time Vascular: Cap refill brisk Pain: No tenderness to palpation about the fracture site and pin sites in the right hand at the base of the 5th metacarpal ROM: Limited range of motion of the ring and small fingers of the right hand, patient is able to make a closed fist and extend all other digits Skin: No lacerations or abrasions. Pin sites clean, dry, intact General: No ecchymosis, erythema, or evidence of infection. Psych: Appears grossly normal Affect normal Attitude cooperative Office Procedures Casting/Splints 86014-Mrlk/Wrist Cast Application Procedure code (CPT) selection complete Results Reviewed Results Reviewed: X-rays obtained in the office today and independently reviewed by me, Gurwinder Spring PA-C, demonstrate surgically reduced fracture and dislocation of the right 5th metacarpal base with pins in place and in satisfactory clinical alignment. Assessment & Plan Assessment & Plan (1) Closed dislocation of fifth carpometacarpal joint of right hand: Onset Date: ~01/07/25 Code(s): S63.054A - Dislocation of other carpometacarpal joint of right hand, initial encounter Category: Medical (2) Fracture of fifth metacarpal bone of right hand: Onset Date: ~01/07/25 Code(s): S62.306A - Unspecified fracture of fifth metacarpal bone, right hand, initial encounter for closed fracture Category: Medical Plan 1. Status post CRPP of right 5th metacarpal base fracture dislocation DOS 01/09/2025 Patient appears to be recovering well postoperatively Patient is educated about the typical recovery course At this time, patient is placed into 2 finger ulnar gutter cast Patient is educated on proper cast care and precautions Patient is amenable to this plan Follow-up in 2 weeks with repeat x-rays, anticipate pin removal if adequate healing at that time, sooner with any acute concerns Coding Level of Care Code Global (35025) Diagnoses Closed dislocation of fifth carpometacarpal joint of right hand S63.054A Fracture of fifth metacarpal bone of right hand S62.306A CPT Codes Casting - CPT: 30823-Mefn/Wrist Cast Application ([id number])
[2025-01-21 13:09] VITALS: BMI 39.9
== END 2025-01-21 13:23 | disposition home or self-care (01) ==
LOC: HO.HOS 12:54
DX: S63.054A Dislocation of other carpometacarpal joint of right hand, initial encounter (principal); S62.306A Unspecified fracture of fifth metacarpal bone, right hand, initial encounter for closed fracture
CPT/HCPCS: 29085; 99024

== ENCOUNTER → 2025-01-21 13:00 | Outpatient (BNV) | payer OTHER, SELFPAY | PROVIDERS: Visit Provider Radiology Diagnostic Radiology | DX: S62.307D Unspecified fracture of fifth metacarpal bone, left hand, subsequent encounter for fracture with routine healing (principal) | CPT/HCPCS: 73130 ==

== ENCOUNTER 2025-02-04 08:40 | Outpatient (REF) | payer OTHER, SELFPAY ==
--- NOTE | ~2025-02-04 | XR_ITS ---
EXAMINATION: XR HAND, RIGHT CLINICAL INFORMATION: M79.641 - Pain in right hand COMPARISON: January 07, 2025 and January 21, 2025. TECHNIQUE: PA, lateral, and oblique views of the right hand. FINDINGS: There are 2 K wires fixing the base of the fifth metacarpal fracture. No periosteal bone reaction. No gross callus formation. The phalanges are intact with normal alignment. Distal radius and ulna are intact. The carpal bones are intact. XR/XR hand RT min 3V IMPRESSION: No gross healing. Electronically signed by: Luke Frazier MD 02/04/2025 02:07 PM EDT
== END 2025-02-04 08:41 | disposition home or self-care (01) ==
LOC: HO.HOSX 08:40
DX: M79.641 Pain in right hand (principal); S63.054A Dislocation of other carpometacarpal joint of right hand, initial encounter
CPT/HCPCS: 29085; 73130

== ENCOUNTER → 2025-02-04 13:23 | Outpatient (BNV) | payer OTHER, SELFPAY | PROVIDERS: Visit Provider Radiology Diagnostic Radiology | DX: M79.641 Pain in right hand (principal) | CPT/HCPCS: 73130 ==

== ENCOUNTER 2025-02-04 13:25 | Outpatient (AMB) | payer OTHER, SELFPAY ==
--- NOTE | 2025-02-04 13:51 | MHC.OFFVIS ---
Vital Signs 02/04/25 13:52 Height 5 ft 5 in Weight 240 lb BMI 39.9 Handedness Right Intake Visit Reasons: PO: left 5th MC fx CRPP 01/09/25-w/xrays Intake Note: Rosas is a 24 year old right hand dominant male who presents today for a post operative visit status post left 5th metacarpal base fracture/dislocation CRPP DOS: 01/09/[address] Rachel Payton. Patient reports he has had some intermittent pain and swelling in the left hand. Expresses stiffness in the 4th and 5th digits of left hand with some numbness on dorsal aspect. Allergies No Known Allergies Allergy (Verified 02/04/25 13:51) HPI HPI PO: left 5th MC fx CRPP 01/09/25-w/xrays: Details: Rosas is a 24 year old right hand dominant male who presents today for a post operative visit status post left 5th metacarpal base fracture/dislocation CRPP DOS: 01/09/[address] Rachel Payton. Patient reports he has had some intermittent pain and swelling in the left hand. Expresses stiffness in the 4th and 5th digits of left hand with some numbness on dorsal aspect. [facility] Medical History Closed dislocation of fifth carpometacarpal joint of right hand (~01/07/25) Fracture of fifth metacarpal bone of right hand (~01/07/25) Asthma Surgical History Hx of tonsillectomy Social History Are you a primary in home caregiver to a significant other at home: No Do you presently have visiting nurse or other home services: No Comment: counts correct Patient Tobacco Use Status: Never used Tobacco Current occupational status: employed Current occupation: shipping airplanes parts/ rt hand Review of Systems Const All systems reviewed & are unremarkable except as noted in HPI and below Physical Exam Vital Signs: BMI result Body Mass Index 39.9 Extrem Other: Patient is alert, oriented, and in no acute distress. Neuro: Normal sensation of the tips of all digits of the right hand at this time Vascular: Cap refill brisk Pain: No tenderness to palpation about the fracture site and pin sites in the right hand at the base of the 5th metacarpal ROM: Limited range of motion of the ring and small fingers of the right hand, patient is able to make a closed fist and extend all other digits Skin: No lacerations or abrasions. Pin sites clean, dry, intact General: No ecchymosis, erythema, or evidence of infection. Psych: Appears grossly normal Affect normal Attitude cooperative Office Procedures Casting/Splints 61202-Uxhy/Wrist Cast Application Procedure code (CPT) selection complete Results Reviewed Results Reviewed: X-rays obtained in the office today and independently reviewed by me, Gurwinder Spring PA-C, demonstrate surgically reduced fracture and dislocation of the right 5th metacarpal base with pins in place and in satisfactory clinical alignment. Assessment & Plan Assessment & Plan (1) Closed dislocation of fifth carpometacarpal joint of right hand: Onset Date: ~01/07/25 Code(s): S63.054A - Dislocation of other carpometacarpal joint of right hand, initial encounter Category: Medical (2) Fracture of fifth metacarpal bone of right hand: Onset Date: ~01/07/25 Code(s): S62.306A - Unspecified fracture of fifth metacarpal bone, right hand, initial encounter for closed fracture Category: Medical Plan 1. Status post CRPP of right 5th metacarpal base fracture dislocation DOS 01/09/2025 Patient appears to be recovering well postoperatively Patient is educated about the typical recovery course At this time, patient is placed into 2 finger ulnar gutter cast Patient is educated on proper cast care and precautions Patient is amenable to this plan Follow-up in 1-22 weeks with repeat x-rays, anticipate pin removal if adequate healing at that time, sooner with any acute concerns Orders: Orders XR hand RT min 3V 02/04/25 M79.641 - Pain in right hand Coding Level of Care Code Global (54740) Diagnoses Closed dislocation of fifth carpometacarpal joint of right hand S63.054A Fracture of fifth metacarpal bone of right hand S62.306A CPT Codes Casting - CPT: 87041-Opdx/Wrist Cast Application ([id number])
[2025-02-04 13:52] VITALS: BMI 39.9
== END 2025-02-04 16:05 | disposition home or self-care (01) ==
LOC: HO.HOS 13:25
DX: S63.054A Dislocation of other carpometacarpal joint of right hand, initial encounter (principal); S62.306A Unspecified fracture of fifth metacarpal bone, right hand, initial encounter for closed fracture
CPT/HCPCS: 29085; 99024

== ENCOUNTER 2025-02-19 08:43 | Outpatient (AMB) | payer OTHER, SELFPAY ==
--- NOTE | 2025-02-19 08:47 | MHC.OFFVIS ---
Vital Signs 02/19/25 09:09 Height 5 ft 5 in Weight 240 lb BMI 39.9 Handedness Right Intake Visit Reasons: PO: left 5th MC fx CRPP 01/09/25-w/xrays Intake Note: Rosas is a 24 year old right hand dominant male who presents today for a post operative visit status post left 5th metacarpal base fracture/dislocation CRPP DOS: 01/09/[address] Rachel Payton. Patient reports he has had some pain where his pins are located. Denies numbness and ingling or recent trauma. Cast has been removed in office to update xrays. Reports stiffness in the 4th and 5th left hand digits with removal of cast. Allergies No Known Allergies Allergy (Verified 02/04/25 13:51) HPI HPI PO: left 5th MC fx CRPP 01/09/25-w/xrays: Details: Rosas is a 24 year old right hand dominant male who presents today for a post operative visit status post left 5th metacarpal base fracture/dislocation CRPP DOS: 01/09/[address] Rachel Payton. Patient reports he has had some pain where his pins are located. Denies numbness and tingling or recent trauma. Cast has been removed in office to update xrays. Reports stiffness in the 4th and 5th left hand digits with removal of cast. [facility] Medical History Closed dislocation of fifth carpometacarpal joint of right hand (~01/07/25) Fracture of fifth metacarpal bone of right hand (~01/07/25) Asthma Surgical History Hx of tonsillectomy Social History Are you a primary intensive care ambulance paramedic to a significant other at home: No Do you presently have visiting nurse or other home services: No Comment: counts correct Patient Tobacco Use Status: Never used Tobacco Current occupational status: employed Current occupation: shipping airplanes parts/ rt hand Review of Systems Const All systems reviewed & are unremarkable except as noted in HPI and below Physical Exam Vital Signs: BMI result Body Mass Index 39.9 Extrem Other: Patient is alert, oriented, and in no acute distress. Neuro: Normal sensation of the tips of all digits of the right hand at this time Vascular: Cap refill brisk Pain: No tenderness to palpation about the fracture site and pin sites in the right hand at the base of the 5th metacarpal ROM: Limited range of motion of the ring and small fingers of the right hand, patient is able to make a closed fist and extend all other digits Skin: No lacerations or abrasions. Pin sites clean, dry, intact There is a small area of redness in the area of the ulnar styloid of the right wrist, patient reports that the cast was rubbing on him in this area There does appear to be some moisture somewhat near the pin sites, patient reports that he did get quite sweaty yesterday. General: No ecchymosis, erythema, or evidence of infection. Psych: Appears grossly normal Affect normal Attitude cooperative Results Reviewed Results Reviewed: X-rays obtained in the office today and independently reviewed by me, Gurwinder Spring PA-C, demonstrate surgically reduced fracture and dislocation of the right 5th metacarpal base with pins in place and in satisfactory clinical alignment. Assessment & Plan Assessment & Plan (1) Fracture of fifth metacarpal bone of right hand: Onset Date: ~01/07/25 Code(s): S62.306A - Unspecified fracture of fifth metacarpal bone, right hand, initial encounter for closed fracture Category: Medical (2) Closed dislocation of fifth carpometacarpal joint of right hand: Onset Date: ~01/07/25 Code(s): S63.054A - Dislocation of other carpometacarpal joint of right hand, initial encounter Category: Medical Plan 1. Status post CRPP of right 5th metacarpal base fracture dislocation DOS 01/09/2025 Patient appears to be recovering well postoperatively Patient is educated about the typical recovery course Antibiotics ordered out of an abundance of caution due to moisture being seen near the pin sites, no signs of active ongoing infection of pin sites at this time Pins pulled today at this time without issue Patient is placed in a Velcro wrist splint and provided with garland tape to be worn during the day Continue 1 lb weight limit in right hand Patient is educated on proper pin site care and precautions OT ordered to begin working on early range of motion of the right hand Patient is amenable to this plan Follow-up in 4 weeks with repeat x-rays, sooner with any acute concerns Orders: Orders OT Evaluation and Treatment Today S62.306A - Unspecified fracture of fifth metacarpal bone, right hand, initial encounter for closed fracture, S63.054A - Dislocation of other carpometacarpal joint of right hand, initial encounter XR wrist RT min 3V Today M25.531 - Pain in right wrist Medications: New amoxicillin-pot clavulanate 875-125 mg 1 tab PO BID 14 tabs 0RF 7 days Coding Level of Care Code Global (96510) Diagnoses Fracture of fifth metacarpal bone of right hand S62.306A Closed dislocation of fifth carpometacarpal joint of right hand S63.054A
[2025-02-19 09:09] VITALS: BMI 39.9
== END 2025-02-19 09:59 | disposition home or self-care (01) ==
LOC: HO.HOS 08:44
DX: S62.306A Unspecified fracture of fifth metacarpal bone, right hand, initial encounter for closed fracture (principal); S63.054A Dislocation of other carpometacarpal joint of right hand, initial encounter
CPT/HCPCS: 99024

== ENCOUNTER 2025-02-19 08:43 | Outpatient (REF) | payer OTHER, SELFPAY ==
--- NOTE | ~2025-02-19 | XR_ITS ---
EXAMINATION: XR WRIST, RIGHT CLINICAL INFORMATION: M25.531 - Pain in right wrist post external fix COMPARISON: January 09 and January 07, 2025 TECHNIQUE: PA, lateral, and oblique views of the right wrist. FINDINGS: 2 K wires are again identified traversing from the ulnar side of the hand through the base of the fifth metacarpal fixing an intra-articular fracture. Position of wires is unchanged. No changes have occurred XR/XR wrist RT min 3V IMPRESSION: Stable post external fixation of an intra-articular fracture of the base of the fifth metacarpal in the right hand Electronically signed by: Andre Arguello MD 02/19/2025 11:10 AM EDT
== END 2025-02-19 08:44 | disposition home or self-care (01) ==
LOC: HO.HOSX 08:43
DX: M25.531 Pain in right wrist (principal)
CPT/HCPCS: 73110

== ENCOUNTER → 2025-02-19 08:51 | Outpatient (BNV) | payer OTHER, SELFPAY | PROVIDERS: Visit Provider Radiology Diagnostic Radiology | DX: M25.531 Pain in right wrist (principal) | CPT/HCPCS: 73110 ==

== ENCOUNTER 2025-02-25 15:09 | Outpatient (AMB) | payer OTHER, SELFPAY ==
--- NOTE | 2025-02-25 15:34 | MHC.OFFVIS ---
Intake Visit Reasons: PO: left 5th MC fx CRPP 01/09/25- wound check Intake Note: Rosas is a 24 year old right hand dominant male who presents today for a post operative visit s/p left 5th metacarpal base fracture/dislocation CRPP DOS: 01/09/25. At his last visit his pins were removed and placed in a velcro wrist splint. Given a 1lb weight limit. Patient states that for the past two weeks he has had shooting pain in the wrist. Patient noted that no numbness or tingling at this time. Patient states that the rash is still there and changing dressing as needed. Allergies No Known Allergies Allergy (Verified 02/25/25 15:39) HPI HPI PO: left 5th MC fx CRPP 01/09/25- wound check: Details: Rosas is a 24 year old right hand dominant male who presents today for a post operative visit s/p left 5th metacarpal base fracture/dislocation CRPP DOS: 01/09/25. At his last visit his pins were removed and placed in a velcro wrist splint. Given a 1lb weight limit. Patient states that for the past two weeks he has had shooting pain in the wrist. Patient noted that no numbness or tingling at this time. Patient states that the rash is still there and changing dressing as needed. [facility] Medical History Closed dislocation of fifth carpometacarpal joint of right hand (~01/07/25) Fracture of fifth metacarpal bone of right hand (~01/07/25) Asthma Surgical History Hx of tonsillectomy Social History Are you a primary personal care service provider to a significant other at home: No Do you presently have visiting nurse or other home services: No Comment: counts correct Patient Tobacco Use Status: Never used Tobacco Current occupational status: employed Current occupation: shipping airplanes parts/ rt hand Review of Systems Const All systems reviewed & are unremarkable except as noted in HPI and below Physical Exam Extrem Other: Patient is alert, oriented, and in no acute distress. Neuro: Normal sensation of the tips of all digits of the right hand at this time Vascular: Cap refill brisk Pain: No tenderness to palpation about the fracture site and pin sites in the right hand at the base of the 5th metacarpal ROM: Limited range of motion of the ring and small fingers of the right hand, patient is able to make a closed fist and extend all other digits Skin: No lacerations or abrasions. Pin sites clean, dry, intact There is a small area of redness in the area of the ulnar styloid of the right wrist, patient reports that the cast was rubbing on him in this area There does appear to be some moisture somewhat near the pin sites, patient reports that he did get quite sweaty yesterday. This red area appears to have several small blisters over the redness General: No ecchymosis or other evidence of infection. Psych: Appears grossly normal Affect normal Attitude cooperative Assessment & Plan Assessment & Plan (1) Fracture of fifth metacarpal bone of right hand: Onset Date: ~01/07/25 Code(s): S62.306A - Unspecified fracture of fifth metacarpal bone, right hand, initial encounter for closed fracture Category: Medical (2) Closed dislocation of fifth carpometacarpal joint of right hand: Onset Date: ~01/07/25 Code(s): S63.054A - Dislocation of other carpometacarpal joint of right hand, initial encounter Category: Medical Plan 1. Status post CRPP of right 5th metacarpal base fracture dislocation DOS 01/09/2025 Patient is evaluated with Dr. Payton, and a collaborative treatment plan was formed: Patient appears to be recovering well postoperatively Patient is educated about the typical recovery course No further abx required at this time Pins pulled today at this time without issue Patient is placed in a Velcro wrist splint and provided with garland tape to be worn during the day Continue 1 lb weight limit in right hand Patient is educated on proper pin site care and precautions Begin OT later this week Patient is amenable to this plan Follow-up in 1-2 weeks for wound/rash check, sooner with any acute concerns Coding Level of Care Code Global (25645) Diagnoses Fracture of fifth metacarpal bone of right hand S62.306A Closed dislocation of fifth carpometacarpal joint of right hand S63.054A
== END 2025-02-25 16:25 | disposition home or self-care (01) ==
LOC: HO.HOS 15:10
DX: S62.306A Unspecified fracture of fifth metacarpal bone, right hand, initial encounter for closed fracture (principal); S63.054A Dislocation of other carpometacarpal joint of right hand, initial encounter
CPT/HCPCS: 99024

== ENCOUNTER 2025-03-05 15:02 | Outpatient (AMB) | payer OTHER, SELFPAY ==
--- NOTE | 2025-03-05 15:19 | A.OFFVIS_ITS ---
Vital Signs 03/05/25 15:21 Height 5 ft 5 in Weight 240 lb BMI 39.9 Handedness Right Intake Visit Reasons: OV-Wound Check Intake Note: Rosas is a 24 year old right hand dominant male who presents today for a post operative visit status post left 5th metacarpal base fracture/dislocation CRPP DOS: 01/09/[address] Rachel Payton. He presents today for a wound check. He states he had a rash and bubbles all over the dorsal aspect of the left hand but starting Monday tis has slowly resolved on its own. Expresses some pain and discomfort if he moves the wrist too quickly. He has returned to work on light duty. Allergies No Known Allergies Allergy (Verified 03/05/25 15:21) HPI HPI OV-Wound Check: Details: Rosas is a 24 year old right hand dominant male who presents today for a post operative visit status post left 5th metacarpal base fracture/dislocation CRPP DOS: 01/09/[address] Rachel Payton. He presents today for a wound check. He states he had a rash and bubbles all over the dorsal aspect of the left hand but starting Monday tis has slowly resolved on its own. Expresses some pain and discomfort if he moves the wrist too quickly. He has returned to work on light duty. [facility] Medical History Closed dislocation of fifth carpometacarpal joint of right hand (~01/07/25) Fracture of fifth metacarpal bone of right hand (~01/07/25) Asthma Surgical History Hx of tonsillectomy Social History Are you a primary career coach to a significant other at home: No Do you presently have visiting nurse or other home services: No Comment: counts correct Patient Tobacco Use Status: Never used Tobacco Current occupational status: employed Current occupation: shipping airplanes parts/ rt hand Review of Systems Const All systems reviewed & are unremarkable except as noted in HPI and below Physical Exam Vital Signs: BMI result Body Mass Index 39.9 Extrem Other: Patient is alert, oriented, and in no acute distress. Neuro: Normal sensation of the tips of all digits of the right hand at this time Vascular: Cap refill brisk Pain: No tenderness to palpation about the fracture site and pin sites in the right hand at the base of the 5th metacarpal ROM: Limited range of motion of the ring and small fingers of the right hand, patient is able to make a closed fist and extend all other digits Skin: No lacerations or abrasions. Pin sites clean, dry, intact Rash and redness have completely resolved General: No ecchymosis or other evidence of infection. Psych: Appears grossly normal Affect normal Attitude cooperative Assessment & Plan Assessment & Plan (1) Closed dislocation of fifth carpometacarpal joint of right hand: Onset Date: ~01/07/25 Code(s): S63.054A - Dislocation of other carpometacarpal joint of right hand, initial encounter Category: Medical (2) Fracture of fifth metacarpal bone of right hand: Onset Date: ~01/07/25 Code(s): S62.306A - Unspecified fracture of fifth metacarpal bone, right hand, initial encounter for closed fracture Category: Medical Plan 1. Status post CRPP of 5th metacarpal base of right hand DOS 01/09/2025 Patient appears to be recovering well postoperatively Patient is educated about the typical recovery course Rash of the skin concerns have completely resolved at this time Patient should continue with a Velcro wrist splint and garland taping 2 lb weight limit reinforced Patient is amenable to this plan Follow-up in 2 weeks with repeat x-rays for reassessment, sooner with any acute concerns Coding Level of Care Code Global (26127) Diagnoses Closed dislocation of fifth carpometacarpal joint of right hand S63.054A Fracture of fifth metacarpal bone of right hand S62.306A
[2025-03-05 15:21] VITALS: BMI 39.9
== END 2025-03-05 15:31 | disposition home or self-care (01) ==
LOC: HO.HOS 15:03
DX: S63.054A Dislocation of other carpometacarpal joint of right hand, initial encounter (principal); S62.306A Unspecified fracture of fifth metacarpal bone, right hand, initial encounter for closed fracture
CPT/HCPCS: 99024

== ENCOUNTER 2025-03-18 14:53 | Outpatient (RCR) | payer OTHER, SELFPAY ==
--- NOTE | 2025-02-26 12:08 | MHC.OT.EP ---
[address] [phone] Occupational Therapy Plan of Care Patient Name: Rosas Snow Date of Evaluation: 02/26/25 Diagnosis: right 5th MC fx; post-op CRPP Pain Location: Pain free at rest Sharp pain with some movements or grasping for an object Pain Score: 5 Pain Scale Used: Numeric (0 - 10) Aggravating Factors: Grasping Alleviating Factors: Nothing used currently Assessment: 24 yo male fell getting into his truck and caught himself on his right hand, resulting in right fifth metacarpal fx. He is now post-op surgical repair 01/09/25 w/ Dr Payton w/ CRPP. Pins and cast have been removed, pt now referred to OT for continued management. Today, pt comes w/ prefab orthosis and dressing to right hand, removed for assessment and treatment. Pt w/ dorsal/ulnar hand redness and edema and light serous drainage discussed case w/ Gurwinder and it seems to be improving from yesterday's wound check with him. He has good range in digits and wrist, some limitations with wrist flexion. He has been avoiding heavy gripping and use of right hand, family helping with some home tasks. Overall he is doing well and I anticipate he will progress well through course of OT. Frequency and Duration: The patient will be seen 2x/wk for 4 weeks Short Term Goals: Good follow through w/ wound care Ind w/ HEP Progress to light strengthening program Longterm Goals: Right gross grasp 50lb Pt to demo lift and carry >40lb Wrist flex >65 degrees QuickDASH score <35 pts Treatment Plan: Therapeutic Exercise Therapeutic Activity Home Exercise Program Splinting Patient Education Desensitization/Sensory Re-ed Edema Control ADL Training Paraffin Fluidotherapy MHP Cold Packs Joint Mobilization Soft Tissue Mobilization Kinesiotaping Wound care/skin checks Electronically Signed By: Rox Li, OTR/L CHT Please Sign and return to therapist. Thank you once again for your referral.
== END 2025-03-18 15:32 | disposition home or self-care (01) ==
LOC: HO.OT 14:53
DX: S62.306D Unspecified fracture of fifth metacarpal bone, right hand, subsequent encounter for fracture with routine healing (principal); S63.054D Dislocation of other carpometacarpal joint of right hand, subsequent encounter
CPT/HCPCS: 97110; 97140; 97165; 97535

== ENCOUNTER 2025-03-18 15:34 | Outpatient (AMB) | payer OTHER, SELFPAY ==
--- NOTE | 2025-03-18 15:38 | MHC.OFFVIS ---
Intake Visit Reasons: PO: 5th MCP CRPP DOS:01/09/25 AR Intake Note: Rosas is a 24 year old right hand dominant male who presents today post-operatively for a wound check status post left 5th metacarpal base CRPP DOS: 01/09/[address] Payton. At his last visit he was advised to continue using his Velcro wrist splint and garland taping with a 2 lb weight limit reinforced. Patient reports his only concern is pain with over usage of his left hand. He states he thinks OT is also improving his symptoms. He utilizes his brace just for work, at home he says he lets his left hand rest without it. Allergies No Known Allergies Allergy (Verified 03/05/25 15:21) HPI HPI PO: 5th MCP CRPP DOS:01/09/25 AR: Details: Rosas is a 24 year old right hand dominant male who presents today post-operatively for a wound check status post left 5th metacarpal base CRPP DOS: 01/09/[address] Payton. At his last visit he was advised to continue using his Velcro wrist splint and garland taping with a 2 lb weight limit reinforced. Patient reports his only concern is pain with over usage of his left hand. He states he thinks OT is also improving his symptoms. He utilizes his brace just for work, at home he says he lets his left hand rest without it. [facility] Medical History Closed dislocation of fifth carpometacarpal joint of right hand (~01/07/25) Fracture of fifth metacarpal bone of right hand (~01/07/25) Asthma Surgical History Hx of tonsillectomy Social History Are you a primary health care / medical job titles to a significant other at home: No Do you presently have visiting nurse or other home services: No Comment: counts correct Patient Tobacco Use Status: Never used Tobacco Current occupational status: employed Current occupation: shipping airplanes parts/ rt hand Review of Systems Const All systems reviewed & are unremarkable except as noted in HPI and below Physical Exam Extrem Other: Patient is alert, oriented, and in no acute distress. Neuro: Normal sensation of the tips of all digits of the right hand at this time Vascular: Cap refill brisk Pain: No tenderness to palpation about the fracture site and pin sites in the right hand at the base of the 5th metacarpal ROM: patient is able to make a closed fist and extend all digits of the right hand Skin: No lacerations or abrasions. Pin sites clean, dry, intact Rash and redness have completely resolved General: No ecchymosis or other evidence of infection. Psych: Appears grossly normal Affect normal Attitude cooperative Assessment & Plan Assessment & Plan (1) Closed dislocation of fifth carpometacarpal joint of right hand: Onset Date: ~01/07/25 Code(s): S63.054A - Dislocation of other carpometacarpal joint of right hand, initial encounter Category: Medical (2) Fracture of fifth metacarpal bone of right hand: Onset Date: ~01/07/25 Code(s): S62.306A - Unspecified fracture of fifth metacarpal bone, right hand, initial encounter for closed fracture Category: Medical Plan 1. Status post CRPP of 5th metacarpal base of right hand DOS 01/09/2025 Patient appears to be recovering well postoperatively Patient is educated about the typical recovery course Rash of the skin concerns have completely resolved at this time Patient should continue with a Velcro wrist splint and garland taping for a further 3-4 weeks Can gradually increase weight lifting capacity to 5 lb over the next 2 weeks, 10 lb over the 2 weeks following, and then a gradual return back to full normal lifting Patient is amenable to this plan Follow-up as needed with any acute concerns Coding Level of Care Code Global (75341) Diagnoses Closed dislocation of fifth carpometacarpal joint of right hand S63.054A Fracture of fifth metacarpal bone of right hand S62.306A
== END 2025-03-18 15:48 | disposition home or self-care (01) ==
LOC: HO.HOS 15:34
DX: S63.054A Dislocation of other carpometacarpal joint of right hand, initial encounter (principal); S62.306A Unspecified fracture of fifth metacarpal bone, right hand, initial encounter for closed fracture
CPT/HCPCS: 99024